=== PATIENT | male | born 1945 | race Caucasian/White ===

== ENCOUNTER 2021-09-25 08:11 | Day surgery (SDC) | payer OTHER ==
[~2021-09-25] VITALS: Ht 188 cm; Wt 105.0 kg
[~2021-09-25 08:11] MED LIST: ALDACTONE50 MG PO; AMARYL1 MG PO; AMLOD-VALSA-HC1 EACH PO; AMLODIPINE BESYL5 MG PO; ASPIR 8181 MG PO; CINNAMON500 MG PO; FISH OIL 1,0001 EAC2 NG; FLOMAX0.4 MG PO; GABAPENTIN300 MG PO; GARLIC OIL1000 MG PO; JARDIANCE25 MG PO; METFORMIN HCL1000 MG PO; METOPROLOL SUCC50 MG PO; SIMVASTATIN10 MG PO
--- NOTE | 2021-09-25 10:09 | NUR ---
09/25/21 Ev9 Jasmina Montoya 0941-PATIENT ARRIVED TO PACU ON 2L NC RR EVEN. REACTIVE TO VERBAL STIMULI DENIES PAIN OR NAUSEA. LAYING LEFT LATERAL. ABDOMEN SOFT. IVF INFUSING. 1008-PATIENT AROUSING OPENING EYES DENIES PAIN OR NAUSEA. HOB ELEVATED. PLACED ON RA. RR EVEN 99%
--- NOTE | 2021-09-26 07:28 | OR ---
[facility] [address], [place] [address] Signed DATE OF OPERATION: 09/25/2021 SURGEON: Navin Wood MD PREOPERATIVE DIAGNOSES: 1. Personal history of colonic polyps in 2016 at age 70. 2. Internal hemorrhoids. POSTOPERATIVE DIAGNOSES: 1. 3 mm polyp opposite ileocecal valve. 2. Minimal internal hemorrhoids. 3. Left prostate nodule. PROCEDURE: Colonoscopy with hot biopsy. ESTIMATED BLOOD LOSS: None. INDICATIONS: Catarino is a 76-year-old gentleman, asked to see me for his followup colonoscopy. He told me his health has been pretty good, but he is waiting for prostate biopsy in a few weeks. He said he is adopted and has no knowledge of his family. I performed his initial screening colonoscopy in 2016 at the age of 70. His polyps were less than 6 mm. He had three adenomatous polyps, one hyperplastic polyp removed. He had a little bit of internal hemorrhoids as well. He did well with Versed and fentanyl. He was asked to follow up in 5 years. slightly because of the COVID pandemic. He has no lower GI complaints currently. I gave him our pamphlet on colonoscopy. He remembers the test quite well. There is risk including, but not limited to gas bloating, crampy abdominal pain, bleeding, perforation requiring surgery, and missed diagnosis. He also understands the need for IV conscious sedation. He had expressed understanding and wished to proceed. PROCEDURE NOTE: Catarino was taken into our endoscopy suite and placed in the left lateral decubitus position. He was given a total of 5 mg of Versed and 100 mcg of fentanyl to cover the case. A digital rectal exam was performed. He does have an indurated swollen prostate. The left is certainly more prominent than the right. The adult colonoscope was introduced and advanced all the way around into the cecum under direct visualization of the camera without difficulty. His prep was quite good. We could easily see the Electronically Signed By: NAVIN WOOD MD 09/26/21 0728 PATIENT NAME: SERGIO JONES OPERATIVE REPORT DATE OF : 47 REPORT #: [id number] PHYSICIAN: NAVIN WOOD MD PCP: ANUSHKA BERNABE MD REPORT IS CONFIDENTIAL AND NOT TO BE RELEASED WITHOUT AUTHORIZATION [facility] [address] [place] [id number] Signed appendiceal orifice and ileocecal valve. Opposite to ileocecal valve was a tiny 3 mm polyp which was easily removed with a hot biopsy forceps. The rest of his colon was unremarkable. The rectum was unremarkable. Upon retroflexion of the scope, he has very minimal internal hemorrhoid tissue. After this, the gas was suctioned out and colonoscope removed. Catarino tolerated the procedure quite well. RECOMMENDATIONS: I will see Catarino back in my office in 7 to 14 days to review his results. It looks like he will stay on the five year plan. Navin Wood MD ALB/MODL /[id number] cc: MD Pedro Luis Oneill MD Copies: NAVIN WOOD MD ~ Electronically Signed By: NAVIN WOOD MD 09/26/21 0728 PATIENT NAME: SERGIO JONES OPERATIVE REPORT DATE OF : 47 REPORT #: [id number] PHYSICIAN: NAVIN WOOD MD PCP: ANUSHKA BERNABE MD REPORT IS CONFIDENTIAL AND NOT TO BE RELEASED WITHOUT AUTHORIZATION
--- NOTE | 2021-09-26 19:02 | PATH ---
[facility] [address] [place], [place] [address] Signed SPECIMEN(S): A PROXIMAL ASCENDING/RIGHT COLON POLYP SPECIMEN SOURCE: A. PROXIMAL ASCENDING/RIGHT COLON POLYP CLINICAL HISTORY: Colonoscopy. Adenomatous polyps hx. Postop: Polyp. FINAL PATHOLOGIC DIAGNOSIS: Colon, proximal ascending/right, polyp, polypectomy: - Severely cauterized fragment of colonic mucosa, cannot exclude low-grade dysplasia. - Negative for malignancy. COMMENT: Multiple additional deeper levels were examined. The degree of cautery artifact precludes histologic examination. NAL:[facility]:C2NR MICROSCOPIC EXAMINATION: Histologic sections of all submitted blocks are examined by light microscopy. These findings, together with the gross examination, support the pathologic diagnosis. GROSS DESCRIPTION: The specimen, labeled "LH, 1," and designated on the requisition "proximal ascending/right polypectomy," is received in formalin and consists of one fragment of brown-ng tissue (0.2 cm in greatest dimension). The specimen is submitted entirely in cassette (A1). AC (under the direct supervision of a pathologist) The Gross Description was prepared using a voice recognition system. The report was reviewed for accuracy; however, sound-alike word errors, addition and/or deletions may occur. If there is any question about this report, please contact Client Services. PERFORMING LABORATORY: The technical component was performed by [employer], [address] [place] [id number] (Boom Worker: Sheela Sheppard MD; CLIA# [id number]). [facility] [address] [address] (CLIA# [id number]). PATIENT NAME: SERGIO JONES PATHOLOGY DATE OF : 47 REPORT #: [id number] PHYSICIAN: [facility] PCP: ANUSHKA BERNABE MD REPORT IS CONFIDENTIAL AND NOT TO BE RELEASED WITHOUT AUTHORIZATION [address] [address] Signed Diagnostician: Lyubov Melissa MD Pathologist Electronically Signed 09/26/2021 Copies: ~ PATIENT NAME: SERGIO JONES PATHOLOGY DATE OF : 47 REPORT #: [id number] PHYSICIAN: [facility] PCP: ANUSHKA BERNABE MD REPORT IS CONFIDENTIAL AND NOT TO BE RELEASED WITHOUT AUTHORIZATION
== END 2021-09-25 10:40 | disposition home or self-care (01) ==
LOC: OPS 08:11 → DS 08:14 → OPS 09:45 → DS 09:45 → OPS 10:40
PROVIDERS: ATTEND Colon & Rectal Surgery
PROC: 0DBC8ZX Excision of Ileocecal Valve, Via Natural or Artificial Opening Endoscopic, Diagnostic (ICD-10-PCS; principal; 2021-09-25 09:45)
DX: K63.5 Polyp of colon (principal); I10 Essential (primary) hypertension; E11.9 Type 2 diabetes mellitus without complications; E78.5 Hyperlipidemia, unspecified; K64.8 Other hemorrhoids; N40.2 Nodular prostate without lower urinary tract symptoms; Z79.84 Long term (current) use of oral hypoglycemic drugs; Z86.010 Personal history of colon polyps; Z88.8 Allergy status to other drugs, medicaments and biological substances
CPT/HCPCS: 99153; G0500; J2250; J3010; J7121